=== PATIENT | male | born 1955 | race Caucasian/White ===

== ENCOUNTER → 2019-10-18 | Outpatient (CLI) | payer BC ==
--- NOTE | 2019-10-21 11:49 | MRI ---
EXAM DESCRIPTION: Cervical Spine: MRI. CLINICAL HISTORY: 64 years Male CERVICAL RADICULOPATHY COMPARISON: MRI lumbar spine on this visit. Cervical spine radiographs October 04. TECHNIQUE: Multiplanar, high-field MRI, multiple sequences, non-contrast Cervical spine. FINDINGS: C3-C4: Disc desiccation with disc space maintained. Minimal posterior midline bulge. Right uncinate spur and borderline right neural foraminal stenosis. Left uncinate spur and moderate left neural foraminal narrowing. Mild canal narrowing. Facet joints are negative. C4-C5: Disc desiccation and minimal disc space loss. Minimal anterior bulging. Left uncinate spur and moderate left neural foraminal narrowing. Mild to moderate right neural foraminal narrowing. C5-C6: Disc desiccation with disc space maintained. Anterior bulging and endplate spurs bilateral mild to moderate neural foraminal narrowing. Minimal bilateral facet arthrosis. No posterior disc bulge. Mild canal narrowing. C6-C7: Moderate disc space loss and endplate reactive changes bilaterally. Anterior bulging and spurs. Bilateral uncinate spurs. Minimal posterior ligament thickening. Moderate canal narrowing. Borderline mild right neural foraminal stenosis and moderate left neural foraminal stenosis. Normal signal in the C2-C3 disc, C7-T1 disc, and T1-T2 disc with no bulging. Disc spaces preserved. Canal and neural foramina are patent. Facet joints showing minimal degenerative hypertrophy at C2-C3. Negative at the other levels. Spinal alignment lack of normal cervical lordosis. No cord compression or cord edema. Atlantoaxial joint with minimal arthrosis. Base of the cerebellar tonsils is at the level of the foramen magnum. Paravertebral soft tissues are negative. Vertebral bodies are not compressed at any level. Otherwise normal marrow signal in the remaining vertebral bodies and the posterior elements. IMPRESSION: 1. Right uncinate spur and borderline right neural foraminal stenosis at C3-C4. Correlate for right C4 radiculopathy. 2. Moderate canal narrowing. Bilateral neural foraminal stenosis at C6-C7. Correlate for bilateral C7 radiculopathy. Electronically signed by: Maciel Turner MD 10/21/2019 11:47 AM CDT
--- NOTE | 2019-10-21 12:16 | MRI ---
EXAM DESCRIPTION: Lumbar Spine w/o Contrast : Magnetic Resonance Imaging. CLINICAL HISTORY: LUMBOSACRAL RADICULITIS COMPARISON: MRI scan lumbar spine October 2015 from outside imaging facility. MRI scan cervical spine on this visit. TECHNIQUE: Multiplanar, multiple standard sequences, non contrast MRI, lumbar spine. FINDINGS: L5-S1: The disc is well visualized on axial T2 series 501, image 3. L5-S1: Disc desiccation posterior disc space loss. Posterior bulge in the midline into the left of midline. Hypertrophic changes in the posterior flavum ligaments and facet joints (canal ligaments). Mild canal narrowing. Disc also bulges into the left foramen with endplate spurs and left foraminal stenosis. Moderate to severe narrowing of the right foramen. Foraminal narrowing bilaterally progressed since the prior study. L4-L5: Marked disc space loss and endplate reactive changes. Grade 1 anterolisthesis 9 mm. Bilateral mild hypertrophic degenerative changes. Disc spur complex encroaching on the left foramen which is stenotic. Similar stenosis on the left. No significant change since the prior study bilateral L4 pars spondylolysis larger on the right. L3-L4: Disc desiccation with disc space maintained and no bulging. Moderate hypertrophic changes in the canal elements. Canal narrowing. Mild to moderate right foraminal narrowing and mild left foraminal narrowing. Stable since the prior study. L2-L3: Disc space maintained and not desiccated with no bulging. Minimal hypertrophic degenerative changes mild right foraminal narrowing. Mild canal narrowing. No interval change from the prior study. L1-L2: Disc desiccation with disc space maintained. Minimal hypertrophic changes of the canal elements. Canal and foramina are patent. Conus terminates just above this level. Stable from the prior study. T12-L1: Disc desiccation with disc space maintained. No bulging. Canal elements are unremarkable. Canal and foramina are patent. No interval change since the prior study. No scoliosis. Paravertebral soft tissues negative. Distal cord normal signal and caliber. Otherwise normal marrow signal in the remaining vertebral bodies and the posterior elements. Vertebral bodies are not compressed at any level. IMPRESSION: 1. Left foraminal stenosis at L5-S1 has progressed since the prior study with left L5 radiculopathy. Severe narrowing of the right foramen is also progressed. 2. Grade 1 anterolisthesis has progressed at L4-5 since the prior study with bilateral neural foraminal stenosis, no interval change from the prior study. Bilateral L4 pars spondylolysis with no significant change. Electronically signed by: Maciel Turner MD 10/21/2019 12:15 PM CDT
== END ==
LOC: MRI 10-11 11:36
PROVIDERS: ATTEND Nurse Practitioner Family
DX: M48.02 Spinal stenosis, cervical region (principal); M54.12 Radiculopathy, cervical region; M25.78 Osteophyte, vertebrae; M54.17 Radiculopathy, lumbosacral region; M48.07 Spinal stenosis, lumbosacral region; M43.16 Spondylolisthesis, lumbar region